=== PATIENT | male | born 1950 | race Caucasian/White ===

== ENCOUNTER 2022-01-04 18:46 | Inpatient (IN) ==
[2022-01-04 20:21] LABS: ABS Lymphocytes 0.6 10^3/ul (1.0-4.8); ABS Neutrophils 0.2 10^3/ul (1.5-7.7); Eosinophil % 1.9 %; Hematocrit 16 % (42-52); Hemoglobin 4.8 g/dL (14.0-18.0); Mean Corpuscular HGB Conc 31 g/dL (31-36); Mean Corpuscular Hemoglobin 29 pg (27-31); Mean Corpuscular Volume 94 fL (80-94); Mean Platelet Volume 10.9 fL (7.4-10.4); Nucleated Red Blood Cells % 0.3; Platelet Count 9 10^3/uL (150-450); Red Blood Count 1.69 10^6 /uL (4.18-5.48); Red Cell Distribution Width 25 % (10-15); White Blood Count 0.8 10^3/uL (3.5-10.8)
[2022-01-04 21:08] LABS: Calcium 8.5 mg/dL (8.6-10.3); Potassium 4.1 mmol/L (3.5-5.0); eGFR CKD-EPI 42.9 (>60)
[2022-01-05] MEDS ORDERED: NS 0.9% 1000 ml BAG 1,000 ML IV SCH (02:30)
[2022-01-05] MEDS: HYDROcodone/ACETAMIN 5/325 mg TAB PO PRN ×4 (02:57→20:54)
[2022-01-05 05:22] LABS: ABS Lymphocytes 0.3 10^3/ul (1.0-4.8); ABS Neutrophils 0.2 10^3/ul (1.5-7.7); Eosinophil % 2.3 %; Hematocrit 18 % (42-52); Hemoglobin 5.4 g/dL (14.0-18.0); Lymphocyte % 62.6 %; Mean Corpuscular HGB Conc 31 g/dL (31-36); Mean Corpuscular Hemoglobin 28 pg (27-31); Mean Corpuscular Volume 92 fL (80-94); Platelet Count 17 10^3/uL (150-450); Red Blood Count 1.91 10^6 /uL (4.18-5.48); Red Cell Distribution Width 22 % (10-15); White Blood Count 0.6 10^3/uL (3.5-10.8)
[2022-01-05 05:51] LABS: Calcium 8.1 mg/dL (8.6-10.3); Potassium 4.2 mmol/L (3.5-5.0); eGFR CKD-EPI 58.9 (>60)
[2022-01-05 06:02] LABS: Urine Creatinine Concentration 62.94 mg/dL; Urine Potassium Concentration 32.8 mmol/L
[2022-01-05 06:34] LABS: Urine Osmo 308 mOsm/kg (150-1150)
[2022-01-05] MEDS ORDERED: Cefepime 1 GM in Dextrose 1 GM/50 ML BAG IV SCH (06:45)
[2022-01-05 09:06] LABS: ABS Lymphocytes 0.4 10^3/ul (1.0-4.8); ABS Neutrophils 0.2 10^3/ul (1.5-7.7); Eosinophil % 1.1 %; Hematocrit 21 % (42-52); Hemoglobin 6.3 g/dL (14.0-18.0); Lymphocyte % 67.1 %; Mean Corpuscular HGB Conc 31 g/dL (31-36); Mean Corpuscular Hemoglobin 28 pg (27-31); Mean Corpuscular Volume 92 fL (80-94); Mean Platelet Volume 8.4 fL (7.4-10.4); Nucleated Red Blood Cells % 1.5; Platelet Count 18 10^3/uL (150-450); Red Blood Count 2.22 10^6 /uL (4.18-5.48); Red Cell Distribution Width 21 % (10-15); White Blood Count 0.5 10^3/uL (3.5-10.8)
[2022-01-05 19:07] LABS: Hematocrit 22 % (42-52); Hemoglobin 6.8 g/dL (14.0-18.0); Mean Corpuscular HGB Conc 31 g/dL (31-36); Mean Corpuscular Hemoglobin 28 pg (27-31); Mean Corpuscular Volume 92 fL (80-94); Mean Platelet Volume 8.2 fL (7.4-10.4); Platelet Count 16 10^3/uL (150-450); Red Blood Count 2.39 10^6 /uL (4.18-5.48); Red Cell Distribution Width 21 % (10-15); White Blood Count 0.7 10^3/uL (3.5-10.8)
[2022-01-05 19:24] LABS: ABS Neutrophils 0.1 10^3/ul (1.5-7.7)
[2022-01-05 19:43] LABS: ABS Lymphocytes 0.5 10^3/ul (1.0-4.8); Eosinophil % 0.6 %; Lymphocyte % 75.6 %; Nucleated Red Blood Cells % 1.7
[2022-01-06 00:13] LABS: Hematocrit 24 % (42-52); Hemoglobin 7.5 g/dL (14.0-18.0); Mean Corpuscular HGB Conc 31 g/dL (31-36); Mean Corpuscular Hemoglobin 29 pg (27-31); Mean Corpuscular Volume 91 fL (80-94); Mean Platelet Volume 8.3 fL (7.4-10.4); Platelet Count 16 10^3/uL (150-450); Red Blood Count 2.61 10^6 /uL (4.18-5.48); Red Cell Distribution Width 20 % (10-15)
[2022-01-06 01:40] LABS: ABS Lymphocytes 0.8 10^3/ul (1.0-4.8); ABS Neutrophils 0.2 10^3/ul (1.5-7.7); Eosinophil % 0.8 %; Nucleated Red Blood Cells % 0.5
[2022-01-06] MEDS: HYDROcodone/ACETAMIN 5/325 mg TAB PO PRN ×4 (03:22→22:22)
[2022-01-06 05:43] LABS: ABS Lymphocytes 0.5 10^3/ul (1.0-4.8); ABS Neutrophils 0.2 10^3/ul (1.5-7.7); Eosinophil % 0.9 %; Hematocrit 24 % (42-52); Hemoglobin 7.3 g/dL (14.0-18.0); Lymphocyte % 74.7 %; Mean Corpuscular HGB Conc 31 g/dL (31-36); Mean Corpuscular Hemoglobin 28 pg (27-31); Mean Corpuscular Volume 92 fL (80-94); Mean Platelet Volume 8.9 fL (7.4-10.4); Nucleated Red Blood Cells % 0.2; Platelet Count 13 10^3/uL (150-450); Red Blood Count 2.58 10^6 /uL (4.18-5.48); Red Cell Distribution Width 20 % (10-15); White Blood Count 0.7 10^3/uL (3.5-10.8)
[2022-01-06 06:04] LABS: Calcium 8.2 mg/dL (8.6-10.3); Potassium 4.2 mmol/L (3.5-5.0); eGFR CKD-EPI 71.3 (>60)
[2022-01-06 10:30] LABS: Osmolality Serum 286 mOsm/kg (275-295)
[2022-01-06] MEDS ORDERED: Polyethylene Glycol 3350 17 GM PACKET PO PRN (11:02)
[2022-01-06] MEDS ORDERED: Senna TAB 8.6 mg TAB PO PRN (11:03)
[2022-01-06 17:09] LABS: Mean Platelet Volume 8.6 fL (7.4-10.4); Platelet Count 14 10^3/uL (150-450)
[2022-01-06 17:16] LABS: Hematocrit 24 % (42-52); Hemoglobin 7.6 g/dL (14.0-18.0); Mean Corpuscular HGB Conc 32 g/dL (31-36); Mean Corpuscular Hemoglobin 30 pg (27-31); Mean Corpuscular Volume 92 fL (80-94); Mean Platelet Volume 8.5 fL (7.4-10.4); Red Blood Count 2.56 10^6 /uL (4.18-5.48); Red Cell Distribution Width 21 % (10-15); White Blood Count 0.7 10^3/uL (3.5-10.8)
[2022-01-06 17:18] LABS: Platelet Count 14 10^3/uL (150-450)
[2022-01-06 17:50] LABS: ABS Lymphocytes 0.5 10^3/ul (1.0-4.8); Eosinophil % 0.4 %; Lymphocyte % 65.2 %; Nucleated Red Blood Cells % 0.5
[2022-01-06 17:53] LABS: ABS Neutrophils 0.2 10^3/ul (1.5-7.7); Anisocytosis 2+; Polychromasia 1+; Stomatocytes 2+
[2022-01-06 18:20] LABS: Albumin 3.2 g/dL (3.2-5.2); Albumin/Globulin Ratio 0.9 (1-3); Calcium 8.3 mg/dL (8.6-10.3); Globulin 3.7 g/dL (2-4); Potassium 4.4 mmol/L (3.5-5.0); Total Protein 6.9 g/dL (6.4-8.9)
[2022-01-06 23:06] LABS: ABS Neutrophils 0.2 10^3/ul (1.5-7.7); Platelet Count 17 10^3/uL (150-450)
[2022-01-06 23:07] LABS: ABS Lymphocytes 0.8 10^3/ul (1.0-4.8); Eosinophil % 0.4 %; Hematocrit 25 % (42-52); Hemoglobin 7.8 g/dL (14.0-18.0); Lymphocyte % 76.3 %; Mean Corpuscular HGB Conc 32 g/dL (31-36); Mean Corpuscular Hemoglobin 29 pg (27-31); Mean Corpuscular Volume 92 fL (80-94); Mean Platelet Volume 8.6 fL (7.4-10.4); Nucleated Red Blood Cells % 0.5; Red Blood Count 2.66 10^6 /uL (4.18-5.48); Red Cell Distribution Width 22 % (10-15)
[2022-01-07] MEDS: HYDROcodone/ACETAMIN 5/325 mg TAB PO PRN ×3 (05:53→18:31)
[2022-01-07 06:15] LABS: Hematocrit 22 % (42-52); Hemoglobin 7.1 g/dL (14.0-18.0); Mean Corpuscular HGB Conc 32 g/dL (31-36); Mean Corpuscular Hemoglobin 29 pg (27-31); Mean Corpuscular Volume 93 fL (80-94); Mean Platelet Volume 8.9 fL (7.4-10.4); Platelet Count 14 10^3/uL (150-450); Red Cell Distribution Width 20 % (10-15); White Blood Count 0.8 10^3/uL (3.5-10.8)
[2022-01-07 06:46] LABS: Nucleated Red Blood Cells % 0.8
[2022-01-07 06:50] LABS: Potassium 4.2 mmol/L (3.5-5.0)
[2022-01-07 06:51] LABS: Calcium 8.1 mg/dL (8.6-10.3); eGFR CKD-EPI 75.4 (>60)
[2022-01-07 07:03] LABS: Anisocytosis 2+
[2022-01-07 07:06] LABS: ABS Neutrophils 0.1 10^3/ul (1.5-7.7)
[2022-01-07 07:07] LABS: ABS Lymphocytes 0.7 10^3/ul (1.0-4.8)
[2022-01-07 11:54] LABS: Rapid COVID-19 Molecular Undetected (Undetected)
[2022-01-07 14:08] LABS: ABS Lymphocytes 0.5 10^3/ul (1.0-4.8); ABS Neutrophils 0.3 10^3/ul (1.5-7.7); Eosinophil % 0.6 %; Hematocrit 24 % (42-52); Hemoglobin 7.5 g/dL (14.0-18.0); Lymphocyte % 61.9 %; Mean Corpuscular HGB Conc 32 g/dL (31-36); Mean Corpuscular Hemoglobin 29 pg (27-31); Mean Corpuscular Volume 92 fL (80-94); Mean Platelet Volume 7.4 fL (7.4-10.4); Nucleated Red Blood Cells % 0.1; Platelet Count 26 10^3/uL (150-450); Red Blood Count 2.59 10^6 /uL (4.18-5.48); Red Cell Distribution Width 21 % (10-15); White Blood Count 0.9 10^3/uL (3.5-10.8)
[2022-01-07 18:17] LABS: ABS Neutrophils 0.3 10^3/ul (1.5-7.7); Hematocrit 23 % (42-52); Hemoglobin 7.3 g/dL (14.0-18.0); Mean Corpuscular HGB Conc 32 g/dL (31-36); Mean Corpuscular Hemoglobin 30 pg (27-31); Mean Corpuscular Volume 93 fL (80-94); Mean Platelet Volume 8.2 fL (7.4-10.4); Platelet Count 18 10^3/uL (150-450); Red Blood Count 2.48 10^6 /uL (4.18-5.48); Red Cell Distribution Width 21 % (10-15); White Blood Count 0.8 10^3/uL (3.5-10.8)
[2022-01-07 18:48] LABS: ABS Lymphocytes 0.4 10^3/ul (1.0-4.8); Eosinophil % 0.7 %; Lymphocyte % 56.3 %; Nucleated Red Blood Cells % 0.4
[2022-01-08] MEDS: HYDROcodone/ACETAMIN 5/325 mg TAB PO PRN ×3 (04:40→17:45)
[2022-01-08 06:51] LABS: Hematocrit 21 % (42-52); Hemoglobin 6.9 g/dL (14.0-18.0); Mean Corpuscular HGB Conc 33 g/dL (31-36); Mean Corpuscular Hemoglobin 30 pg (27-31); Mean Corpuscular Volume 92 fL (80-94); Mean Platelet Volume 8.5 fL (7.4-10.4); Platelet Count 18 10^3/uL (150-450); Red Blood Count 2.32 10^6 /uL (4.18-5.48); Red Cell Distribution Width 21 % (10-15); White Blood Count 0.8 10^3/uL (3.5-10.8)
[2022-01-08 07:23] LABS: Calcium 8.1 mg/dL (8.6-10.3); Potassium 4.1 mmol/L (3.5-5.0); eGFR CKD-EPI 78.1 (>60)
[2022-01-08 08:47] LABS: ABS Lymphocytes 0.5 10^3/ul (1.0-4.8); ABS Neutrophils 0.3 10^3/ul (1.5-7.7); Eosinophil % 0.3 %; Lymphocyte % 65.7 %; Nucleated Red Blood Cells % 0.2
[2022-01-08 16:43] LABS: Hematocrit 26 % (42-52); Mean Corpuscular HGB Conc 31 g/dL (31-36); Mean Corpuscular Hemoglobin 28 pg (27-31); Mean Corpuscular Volume 89 fL (80-94); Mean Platelet Volume 8.3 fL (7.4-10.4); Platelet Count 19 10^3/uL (150-450); Red Blood Count 2.88 10^6 /uL (4.18-5.48); Red Cell Distribution Width 22 % (10-15); White Blood Count 1.3 10^3/uL (3.5-10.8)
[2022-01-09] MEDS: HYDROcodone/ACETAMIN 5/325 mg TAB PO PRN ×5 (00:07→23:49)
[2022-01-09 06:31] LABS: Potassium 4.1 mmol/L (3.5-5.0)
[2022-01-09 06:37] LABS: Hematocrit 24 % (42-52); Hemoglobin 7.8 g/dL (14.0-18.0); Mean Corpuscular HGB Conc 32 g/dL (31-36); Mean Corpuscular Hemoglobin 29 pg (27-31); Mean Corpuscular Volume 90 fL (80-94); Mean Platelet Volume 9.5 fL (7.4-10.4); Platelet Count 11 10^3/uL (150-450); Red Cell Distribution Width 23 % (10-15)
[2022-01-09 08:20] LABS: INR 1.2 (0.89-1.11)
[2022-01-10 07:21] LABS: ABS Lymphocytes 0.7 10^3/ul (1.0-4.8); ABS Neutrophils 0.3 10^3/ul (1.5-7.7); Eosinophil % 0.2 %; Hematocrit 24 % (42-52); Hemoglobin 7.8 g/dL (14.0-18.0); Lymphocyte % 70.3 %; Mean Corpuscular HGB Conc 32 g/dL (31-36); Mean Corpuscular Hemoglobin 29 pg (27-31); Mean Corpuscular Volume 90 fL (80-94); Nucleated Red Blood Cells % 0.5; Platelet Count 10 10^3/uL (150-450); Red Blood Count 2.72 10^6 /uL (4.18-5.48); Red Cell Distribution Width 22 % (10-15)
[2022-01-10] MEDS ORDERED: Midazolam 2 mg/2 ml VIAL 1 mg/ml 2 ml VIAL (2 mg) ONE (08:47)
[2022-01-10] MEDS ORDERED: fentaNYL 100 mcg/2 ml 50 MCG/ML VIAL ONE (08:47)
[2022-01-10] MEDS ORDERED: Dexamethasone IV 4 MG/ML VIAL 1 ml VIAL IV SLOW PU SCH (11:00)
[2022-01-10] MEDS ORDERED: Dexamethasone IV 4 MG/ML 5 ML VIAL (20 MG) SCH (12:00)
[2022-01-10] MEDS: HYDROcodone/ACETAMIN 5/325 mg TAB PO PRN (12:19)
[2022-01-10 18:23] VITALS: BP 135/75
[2022-01-19 15:33] LABS: BM Chromosome Source RPIC; BM Referral Reason D61.81 Pancytopenia; BM Result Summary Abnormal
== END 2022-01-10 19:04 | disposition home or self-care (01) | DRG 808 ==
LOC: ED 18:46 → SUATTDRO 23:21 → EDHOLD 23:21 → MED 01-05 13:02
PROVIDERS: ADMIT Internal Medicine; ATTEND Internal Medicine

== ENCOUNTER 2022-01-17 08:28 | Inpatient (IN) ==
[2022-01-17] MEDS ORDERED: Morphine 4 MG/ML VIAL (1 ml) IV ONE ×2 (08:34→09:15)
[2022-01-17] MEDS ORDERED: Ondansetron 4 mg VIAL 2 MG/ML 2 ml VIAL IV ONE (08:34)
[2022-01-17 09:17] LABS: Hematocrit 25 % (42-52); Hemoglobin 7.8 g/dL (14.0-18.0); Mean Corpuscular HGB Conc 31 g/dL (31-36); Mean Corpuscular Hemoglobin 28 pg (27-31); Mean Corpuscular Volume 90 fL (80-94); Mean Platelet Volume 12.2 fL (7.4-10.4); Platelet Count 6 10^3/uL (150-450); Red Blood Count 2.78 10^6 /uL (4.18-5.48); Red Cell Distribution Width 24 % (10-15); White Blood Count 3.9 10^3/uL (3.5-10.8)
[2022-01-17] MEDS ORDERED: Lactated Ringers 1000 ml BAG 1,000 ML IV ONE ×2 (09:40→14:48)
[2022-01-17 09:54] LABS: Anisocytosis 1+
[2022-01-17 09:56] LABS: ABS Lymphocytes 0.3 10^3/ul (1.0-4.8); ABS Neutrophils 3.4 10^3/ul (1.5-7.7)
[2022-01-17] MEDS ORDERED: HYDROmorphone 1 MG/1 ML SYRINGE IV ONE ×2 (10:01→13:08)
[2022-01-17 10:02] LABS: ALT 35 U/L (7-52); AST 23 U/L (13-39); Albumin 3.1 g/dL (3.2-5.2); Alkaline Phosphatase 72 U/L (35-149); Anion Gap 18 mmol/L (2-11); Blood Urea Nitrogen 32 mg/dL (6-24); CO2 Carbon Dioxide 20 mmol/L (22-32); Calcium 8.4 mg/dL (8.6-10.3); Chloride 97 mmol/L (101-111); Globulin 3.1 g/dL (2-4); Glucose 195 mg/dL (70-100); Lipase < 10 U/L (11.0-82.0); Potassium 3.7 mmol/L (3.5-5.0); Sodium 135 mmol/L (135-145); Total Protein 6.2 g/dL (6.4-8.9); eGFR CKD-EPI 67.6 (>60)
[2022-01-17] MEDS ORDERED: Iohexol 350 (CONTRAST) 500 ML MDV IV ONE (10:05)
[2022-01-17] MEDS ORDERED: Ondansetron 4 mg VIAL 2 MG/ML 2 ml VIAL IV PRN (12:59)
[2022-01-17] MEDS ORDERED: cefTRIAXone 1 gm/50 mL D5W 1 GM/50 ML BAG IV SCH (13:30)
[2022-01-17] MEDS: Enoxaparin 40 MG/0.4 ML SYR SUBCUT SCH ×2 (13:58→14:00)
[2022-01-17] MEDS ORDERED: metroNIDAZOLE IV 500 MG/100ML 500 MG/100 ML BAG IVPB SCH (14:00)
[2022-01-17] MEDS ORDERED: HYDROcodone/ACETAMIN 5/325 mg TAB PO PRN ×2 (14:23→14:37)
[2022-01-17] MEDS ORDERED: HYDROmorphone 0.5 MG/0.5 ML SYRINGE IV PRN ×2 (14:36→14:38)
[2022-01-17] MEDS ORDERED: Norepinephrine 16MCG/ML BAGD5W 4,000 MCG/250 ML BAG IV SCH (15:00)
[2022-01-17 15:12] LABS: Calcium 7.3 mg/dL (8.6-10.3); Magnesium 1.7 mg/dL (1.9-2.7); eGFR CKD-EPI 48.4 (>60)
[2022-01-17] MEDS ORDERED: HYDROmorphone 1 MG/1 ML SYRINGE IV PRN (15:18)
[2022-01-17] MEDS ORDERED: Atropine 1% (ORAL/SL) 15 ML BTL SL PRN (15:19)
[2022-01-17] MEDS ORDERED: HYDROmorphone 1 MG/1 ML SYRINGE IV SLOW PU ONE (15:23)
[2022-01-17] MEDS ORDERED: HYDROmorphone 1 MG/1 ML SYRINGE ONE (15:27)
[2022-01-17 15:33] VITALS: BP 160/126
[2022-01-17 15:53] LABS: Potassium 4.9 mmol/L (3.5-5.0)
[2022-01-17] MEDS ORDERED: D5W 1/2 NS 1000 ml BAG 1,000 ML IV SCH (16:00)
[2022-01-17] MEDS ORDERED: Lactated Ringers SEPSIS* BAG 2,050 ML IV ONE (16:03)
[2022-01-17] MEDS ORDERED: Cefepime 2 GM in Dextrose 2 GM/50 ML BAG IV SCH (17:00)
[2022-01-17] MEDS ORDERED: Lactated Ringers 1000 ml BAG 1,000 ML IV SCH (17:00)
[2022-01-18] MEDS ORDERED: Cholecalciferol (VIT D3) 1,000 unit TAB PO SCH (09:00)
== END 2022-01-17 18:36 | disposition expired | DRG 871 ==
LOC: ED 08:28 → EDHOLD 12:59
PROVIDERS: ADMIT Internal Medicine; ATTEND Internal Medicine